=== PATIENT | male | born 1945 ===

== ENCOUNTER 2021-03-30 22:37 | Emergency (ER) | payer OTHER ==
--- NOTE | 2021-03-30 22:53 | Emergency Department Report ---
ED Chest Pain HPI - General Chief Complaint: Chest Pain Stated Complaint: CHEST PAIN PUI?: No Time Seen by Provider: 03/30/21 22:39 Source: EMS Limitations: Physical Limitation - History of Present Illness Initial Comments: Patient is a 76-year-old male who presents emergency room with chest pain and elevated blood pressure. Patient denies blood pressure medication. Patient states his chest pain is in the left chest. Patient states the pain is a 10 out of 10. Patient states that pain is worsening. Denies fever, chills. Patient denies shortness of breath. Patient complains of headache. During initial evaluation, the patient became aphasic and had left-sided facial droop. A code stroke initiated. Last known well time 2238. MD Complaint: chest pain -: Sudden Consistency: constant Improves With: rest Worsens With: exertion re: denies: nausea, vomting, diaphoresis, dyspnea, sense of impending doom Other Symptoms: denies: cough, fever, rash, acid taste in mouth, leg swelling, palpitations, burping Treatments Prior to Arrival: aspirin - Related Data Allergies Allergy/AdvReac Type Severity Reaction Status Date / Time No Known Allergies Allergy Unverified 03/30/21 23:25 Heart Score - HEART Score History: Slightly suspicious EKG: Normal Age: > 65 Risk factors: No known risk factors Troponin: < normal limit HEART Score: 2 - EKG Read Time Time EKG Completed: 00:40 EKG Read Time: 00:42 ED Review of Systems ROS: Stated complaint: CHEST PAIN Other details as noted in HPI Constitutional: denies: chills, fever Eyes: denies: eye pain, eye discharge, vision change ENT: denies: ear pain, throat pain Respiratory: denies: cough, shortness of breath, wheezing Cardiovascular: chest pain. denies: palpitations Endocrine: no symptoms reported Gastrointestinal: denies: abdominal pain, nausea, diarrhea Genitourinary: denies: urgency, dysuria Musculoskeletal: denies: back pain, joint swelling, arthralgia Skin: denies: rash, lesions Neurological: denies: headache, weakness, paresthesias Psychiatric: denies: anxiety, depression Hematological/Lymphatic: denies: easy bleeding, easy bruising ED Past Medical Hx - Past Medical History Previous Medical History?: Yes Hx Hypertension: Yes - Surgical History Past Surgical History?: No - Family History Family history: no significant - Social History Smoking Status: Never Smoker Substance Use Type: None ED Physical Exam - General General appearance: alert, in no apparent distress - Head Head exam: Present: atraumatic, normocephalic - Eye Eye exam: Present: normal appearance, PERRL Pupils: Present: normal accommodation - ENT ENT exam: Present: mucous membranes dry - Neck Neck exam: Present: normal inspection - Respiratory Respiratory exam: Present: normal lung sounds bilaterally. Absent: respiratory distress, wheezes, rales - Cardiovascular Cardiovascular Exam: Present: regular rate, normal rhythm. Absent: systolic murmur, diastolic murmur, rubs, gallop - GI/Abdominal GI/Abdominal exam: Present: soft, normal bowel sounds - Rectal Rectal exam: Present: deferred - Extremities Exam Extremities exam: Present: normal inspection - Back Exam Back exam: Present: normal inspection - Neurological Exam Neurological exam: Present: alert, altered - Expanded Neurological Exam Expanded Best Eye Response (Darshan): (4) open spontaneously Best Motor Response (Darshan): (6) obeys commands Best Verbal Response (Darshan): (2) incomprehsible sounds Darshan Total: 12 - Skin Skin exam: Present: warm, dry, intact, normal color. Absent: rash ED Course Vital Signs 03/30/21 03/30/21 03/31/21 23:10 23:47 00:21 Temperature 98 F Pulse Rate 110 H 115 H 99 H Respiratory 27 H 23 Rate Blood Pressure 243/119 Blood Pressure 210/114 162/83 [Left] O2 Sat by Pulse 98 95 100 Oximetry 03/31/21 03/31/21 00:34 00:41 Temperature 98 F Pulse Rate 100 H Respiratory 20 Rate Blood Pressure Blood Pressure 146/78 [Left] O2 Sat by Pulse 99 100 Oximetry - Reevaluation(s) Reevaluation #1: Code stroke initiated. 03/30/21 22:46 Reevaluation #2: Patient back in CT. Patient continues to deteriorate. Patient is minimally responsive. Patient will be intubated to protect the airway. 03/30/21 23:02 Reevaluation #3: Patient intubated without difficulty. See procedure note. Patient placed on vent. Patient blood pressure will continue to monitor. Patient's nicardipine drip ordered. Patient will also be given Keppra. 03/30/21 23:15 Reevaluation #4: Patient's blood pressure is proving. Patient is currently on nicardipine and propofol. Patient is stable on the ventilator. We will continue to titrate the propofol as needed for adequate sedation. Patient's nicardipine will be adjusted to maintain the blood pressure below 160. 03/31/21 00:01 Reevaluation #5: I discussed the case with the family. The family attending the case. Family support given. 03/31/21 00:20 - Consultations Consultation #1: I discussed the case with Dr. William, neurosurgeon. Dr. William wants the patient to be transferred to a neurosurgery center. 03/30/21 23:35 Consultation #2: Patient has been accepted to be transferred to [facility] by Dr. Castro. Dr. Castro agrees with Keppra and nicardipine. Dr. Castro wants the patient's blood pressure to be less than [address] Castro also wants the patient to be taken off of Ativan and placed on propofol. 03/30/21 23:44 - Intubation Time Out Performed: Yes Sedative: Etomidate Paralytic: Rocuronium Laryngoscope: fiberoptic video scope Size: 4 Assist Device Used: fiberoptic device ET Tube Size: 7.5 Tube Secured Depth (cm): 22 Tube Secured Location: teeth Tube Placement Confirmation: visualized tube passing t, equal breath sounds bilat, no breath sounds over epi, confirmation by capnometr Patient Tolerated Procedure: well, no complications Intubation Complications: none STEPHANIE score - Stephanie Score Age > 65: (1) Yes Aspirin use within the Past 7 Days: (0) No 3 or more CAD Risk Factors: (0) No 2 or more Angina events in past 24 hrs: (0) No Known CAD with more than 50% Stenosis: (0) No Elevated Cardiac Markers: (0) No ST Deviation Greater than 0.5mm: (0) No STEPHANIE Score: 1 ED Medical Decision Making - Lab Data Result diagrams: 03/30/21 23:08 03/30/21 23:08 - EKG Data -: EKG Interpreted by Me EKG shows normal: sinus rhythm, axis, intervals, ST-T waves Rate: tachycardia - EKG Data Interpretation: other (Left bundle branch block) - Radiology Data Radiology results: report reviewed, image reviewed interpreted by me: Chest x-ray: No pneumonia, no pneumothorax, ET tube in good placement., no osseous findings, no acute findings CT HEAD WITHOUT CONTRAST INDICATION / CLINICAL INFORMATION: CODE STROKE [id number] RT SIDE WEAKNESS DROOP, AMS LKW 2245 . TECHNIQUE: All CT scans at this location are performed using CT dose reduction for ALARA by means of automated exposure control. COMPARISON: None available. FINDINGS: HEMORRHAGE: A parenchymal hematoma is identified in the brainstem. This begins in the nilson on the anterior aspect fourth ventricle just to the right of the midline and extends inferiorly to involve the medulla. Maximum dimensions of the hematoma or about 2.5 cm in superior- inferior dimension by 1.4 x 0.8 cm in greatest transverse dimension at the level of the medulla. EXTRA-AXIAL SPACES: Cortical sulci and sylvian fissures are enlarged reflecting moderate parenchymal atrophy. The Basilar cisterns have an unremarkable appearance. VENTRICULAR SYSTEM: The third and lateral ventricles are mildly enlarged reflecting presence of parenchymal volume loss. CEREBRAL PARENCHYMA: Periventricular and deep white matter lucencies noted compatible with microvascular ischemic change. 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 MIDLINE SHIFT OR HERNIATION: There is no mass effect. CEREBELLUM / BRAINSTEM: Pontine and medullary hemorrhage as described above. MIDLINE STRUCTURES:No abnormalities of the pituitary gland or pineal region are identified. INTRACRANIAL VESSELS: Extensively calcified atherosclerotic plaque is seen along the course the cavernous segments of both internal carotid arteries as well as along the vertebrobasilar system. ORBITS: visualized portions of the orbits have an unremarkable appearance. SOFT TISSUES of HEAD: No significant abnormality. CALVARIUM: Evaluation of bone windows reveals no abnormalities. PARANASAL SINUSES / MASTOID AIR CELLS: Inflammatory changes are present within the hypoplastic left maxillary sinus. There is bony thickening of the wall of the left maxillary sinus consistent with chronic sinusitis. IMPRESSION: 1. Acute right-sided pontine and medullary parenchymal hematoma. - Medical Decision Making Patient is a 76-year-old male that presents emergency room for chest pain. During initial evaluation, the patient became altered. Patient initially answering questions appropriately. However the patient then became aphasic and had a left-sided facial droop. A code stroke was initiated immediately. Patient was admitted transported to CT scan. Patient had a CT scan of the head which showed an intracranial hemorrhage. Patient CT was positive for an acute brainstem hemorrhage. After the patient returned from CT, the patient's neuro exam continued to deteriorate. Patient was intubated to protect the patient's airway. See procedure note for intubation. Chest x-ray was done post patient showed good placement of the ET tube. Patient's blood pressure noted to be elevated and the patient was placed on a nicardipine drip. Patient was initially placed on Ativan for sedation however the neurosurgeon at [facility] wanted to change to propofol. Patient blood pressure dropped improved with nicardipine and propofol. Patient was given Keppra for seizure prevention. Patient had labs done which were essentially unremarkable except for mild lactic acidosis and renal failure. Patient had EKG done which showed no ST changes but showed a left bundle branch block. Patient's troponin was negative. Pressure reviewed EKG and chest x-ray. Due to the fact that this facility does not have neurosurgery team capable of managing this type of intracranial h emorrhage, I discussed the case with [facility] and they had accepted the patient. Critical care time documented due to the multiple reassessments, prolonged time at the bedside, interpretation of diagnostics and labs and discussion with consultants and receiving hospital.. - Differential Diagnosis CVA, ICH, chest pain, altered mental status, hypertensive encephalopathy. Critical Care Time: Yes Critical care time in (mins) excluding proc time.: 80 Critical care attestation.: If time is entered above; I have spent that time in minutes in the direct care of this critically ill patient, excluding procedure time. Critical Care Time: 80 minutes ED Disposition Clinical Impression: Hypertensive emergency, Non-compliance, Aphasia Respiratory failure Qualifiers: Chronicity: acute Respiratory failure complication: hypoxia Qualified Code(s): J96.01 - Acute respiratory failure with hypoxia ICH (intracerebral hemorrhage) Qualifiers: Intracerebral hemorrhage etiology: nontraumatic Cerebral hemorrhage location: unspecified cerebral location Laterality: unspecified laterality Qualified Code(s): I61.9 - Nontraumatic intracerebral hemorrhage, unspecified Altered mental state Qualifiers: Altered mental status type: unspecified Qualified Code(s): R41.82 - Altered mental status, unspecified Chest pain Qualifiers: Chest pain type: unspecified Qualified Code(s): R07.9 - Chest pain, unspecified Acute renal failure Qualifiers: Acute renal failure type: unspecified Qualified Code(s): N17.9 - Acute kidney failure, unspecified Disposition: DC/TX-70 ANOTHER TYPE HLTHCARE Is pt being admited?: No Does the pt Need Aspirin: No Condition: Critical Instructions: Hypertension (ED) Time of Disposition: 00:23 - Assessment Assessment Interval: Baseline - Level of Consciousness 1a. Level of Consciousness: arousable/minor stimuli - LOC Questions 1b. LOC Questions: aphasic - LOC Command 1c. LOC Commands: performs tasks correctly - Best Gaze 2. Best Gaze: normal - Visual 3. Visual: no visual loss - Facial Palsy 4. Facial Palsy: partial paralysis - Motor Arm 5a. Motor Arm Left: no drift 5b. Motor Arm Right: no drift - Motor Leg 6a. Motor Leg Left: no drift 6b. Motor Leg Right: no drift - Limb Ataxia 7. Limb Ataxia: absent - Sensory 8. Sensory: normal - Best Language 9. Best Language: severe aphasia - Dysarthria 10. Dysarthria: severe dysarthria - Extinction and Inattention 11. Extinction/Inattention: no abnormality - Scoring Total Score: 9 Stroke Severity: Moderate Stroke
[2021-03-30] MEDS ORDERED: LORazepam 2 MG/ML VIAL IV PRN (23:17)
[2021-03-30] MEDS ORDERED: MINERAL OIL/PETROLATUM, WHITE OPHTH OINT 3.5 GM OU PRN (23:17)
[2021-03-30] MEDS ORDERED: LIP THERAPY VASELINE TP PRN (23:17)
--- NOTE | 2021-03-30 23:18 | Cat Scan Report ---
CT HEAD WITHOUT CONTRAST INDICATION / CLINICAL INFORMATION: CODE STROKE [id number] RT SIDE WEAKNESS DROOP, AMS LKW 2245 . TECHNIQUE: All CT scans at this location are performed using CT dose reduction for ALARA by means of automated e xposure control. COMPARISON: None available. FINDINGS: HEMORRHAGE: A parenchymal hematoma is identified in the brainstem. This begins in the nilson on the ant erior aspect fourth ventricle just to the right of the midline and extends inferiorly to involve the medulla. Maximum dimensions of the hematoma or about 2.5 cm in superior-inferior dimension by 1.4 x 0 .8 cm in greatest transverse dimension at the level of the medulla. EXTRA-AXIAL SPACES: Cortical sulci and sylvian fissures are enlarged reflecting moderate parenchymal atrophy. The Basilar cisterns have an unremarkable appearance. VENTRICULAR SYSTEM: The third and lateral ventricles are mildly enlarged reflecting presence of paren chymal volume loss. CEREBRAL PARENCHYMA: Periventricular and deep white matter lucencies noted compatible with microvascu lar ischemic change. In addition there is evidence of multiple remote small deep infarctions in a kanwal ateral gangliocapsular distribution. MIDLINE SHIFT OR HERNIATION: There is no mass effect. CEREBELLUM / BRAINSTEM: Pontine and medullary hemorrhage as described above. MIDLINE STRUCTURES:No abnormalities of the pituitary gland or pineal region are identified. INTRACRANIAL VESSELS: Extensively calcified atherosclerotic plaque is seen along the course the stas nous segments of both internal carotid arteries as well as along the vertebrobasilar system. ORBITS: visualized portions of the orbits have an unremarkable appearance. SOFT TISSUES of HEAD: No significant abnormality. CALVARIUM: Evaluation of bone windows reveals no abnormalities. PARANASAL SINUSES / MASTOID AIR CELLS: Inflammatory changes are present within the hypoplastic left m axillary sinus. 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 IMPRESSION: 1. Acute right-sided pontine and medullary parenchymal hematoma. CODE STROKE: Time of Communication (PROJECT PORTFOLIO ANALYST/CDT): 2207 Central standard time Licensed Practitioner Receiving Report: Dr. Reis, [facility] emergency depa rtment. CRITICAL RESULT: Time of Discovery (PROJECT PORTFOLIO ANALYST/CDT): 2155 Central standard time Time of Communication (PROJECT PORTFOLIO ANALYST/CDT): 2208 Central standard time Licensed Practitioner Receiving Report: Dr. Reis, [facility] emergency depa rtment. Read-Back Performed: Not applicable. Signer Name: Alex Hugo MD Signed: 03/30/2021 11:14 PM Workstation Name: [id number]
[2021-03-30] MEDS ORDERED: levETIRAcetam 1000 MG/NS 0.75% 1,000 MG/100 ML BAG IV ONE (23:19)
[2021-03-30 23:38] LABS: Basophils # (Auto) 0.1 K/mm3 (0.0-0.1); Basophils % (Auto) 0.4 % (0.0-1.8); Eosinophils # (Auto) 0.3 K/mm3 (0.0-0.4); Hematocrit 43.8 % (35.5-45.6); Hemoglobin 14.9 gm/dl (11.8-15.2); Lymphocytes # (Auto) 3.2 K/mm3 (1.2-5.4); Lymphocytes % (Auto) 25.9 % (13.4-35.0); Mean Corpuscular HGB Conc 34 % (32-34); Mean Corpuscular Volume 91 fl (84-94); Monocytes % (Auto) 7.9 % (0.0-7.3); Platelet Count 181 K/mm3 (140-440); Red Blood Count 4.81 M/mm3 (3.65-5.03); Red Cell Distribution Width 15.3 % (13.2-15.2)
[2021-03-30] MEDS ORDERED: niCARdipine DRIP 40 MG/200 ML BAG IV ONE (23:39)
[2021-03-30 23:42] LABS: Creatine Kinase MB 2.8 ng/mL (0.0-4.0)
[2021-03-30 23:43] LABS: INR 0.98 (0.87-1.13)
[2021-03-30 23:44] LABS: Alanine Aminotransferase 27 units/L (7-56); Albumin 4.5 g/dL (3.9-5); BUN/Creatinine Ratio 13; Blood Urea Nitrogen 25 mg/dL (9-20); Calcium 9.4 mg/dL (8.4-10.2); Hemolysis Index 7; Partial Thromboplastin Time 28.4 Sec. (24.2-36.6); Thrombin Time 16.4 Sec. (15.1-19.6)
[2021-03-30] MEDS ORDERED: LORazepam 100 MG in SODIUM CHLORIDE 0.9% 50 ML, EMPTY BAG 0 ML IV SCH (23:45)
--- NOTE | 2021-03-30 23:52 | XRay Report ---
CHEST 1 VIEW 03/30/2021 10:23 PM INDICATION / CLINICAL INFORMATION: cp/POST INTUBATION. COMPARISON: None available. FINDINGS: SUPPORT DEVICES: Endotracheal tube has been placed 2.3 cm above the ariana. HEART / MEDIASTINUM: No significant abnormality. LUNGS / PLEURA: Scattered bilateral pulmonary opacities could represent atelectasis. No pneumothorax. ADDITIONAL FINDINGS: No significant additional findings. IMPRESSION: 1. Endotracheal tube in expected position. Signer Name: Nehemias Ramirez MD Signed: 03/30/2021 11:48 PM Workstation Name: [id number]
[2021-03-31 00:27] LABS: Bilirubin,Urine NEG (Negative); Color,Urine Straw (Yellow)
[2021-03-31 00:28] LABS: Blood,Urine NEG (Negative); Mucus,Urine FEW /HPF; Protein,Urine >500 mg/dL (Negative); Urobilinogen,Urine < 2.0 mg/dL (<2.0)
[2021-03-31 00:36] LABS: Amphetamine Screen,Urine PRESUMPTIVE NEGATIVE; Benzodiazepines Screen,Urine PRESUMPTIVE NEGATIVE; Cannabinoid Screen,Urine PRESUMPTIVE NEGATIVE; Cocaine Screen,Urine PRESUMPTIVE NEGATIVE; Methadone Screen,Urine PRESUMPTIVE NEGATIVE; Opiate Screen,Urine PRESUMPTIVE NEGATIVE
[2021-03-31 00:41] VITALS: BP 146/78
--- NOTE | 2021-03-31 13:03 | Electrocardiograph Report ---
[facility] Test Date: 2021-03-31 Test Time: 00:26:36 Pat Name: RACHEL SHELLEY Department: Room: Gender: M Patternmaker: NIKO : 1945 Requested By: KEN CASTELLANOS III Order Number: [id number] Reading MD: Shar Thomas Measurements Intervals [place] Rate: 107 P: 72 PA: 180 QRS: -16 QRSD: 126 T: 147 QT: 369 QTc: 493 Interpretive Statements Sinus tachycardia Left bundle branch block No previous ECG available for comparison Electronically Signed On 03-31-2021 13:02:53 EDT by hSar Thomas
== END 2021-03-31 01:05 | disposition other institution (70) ==
LOC: ED 22:37
DX: J96.01 Acute respiratory failure with hypoxia (principal); I61.9 Nontraumatic intracerebral hemorrhage, unspecified; I16.1 Hypertensive emergency; R41.82 Altered mental status, unspecified; R07.9 Chest pain, unspecified; N17.9 Acute kidney failure, unspecified; R47.01 Aphasia; I10 Essential (primary) hypertension; Z79.899 Other long term (current) drug therapy
CPT/HCPCS: 31500; 36415; 70450; 71045; 80053; 80307; 81001; 82140; 82550; 82553; 82805; 84484; 85025; 85610; 85670; 85730; 93005; 96365; 96368; 96375; 99291; 99292; J1953; J2060; J2704; 80320; 94002; G0480